=== PATIENT | female | born 1975 | race Caucasian/White ===

== ENCOUNTER → 2023-09-06 17:32 | Outpatient (REF) | payer OTHER, SELFPAY | LOC: WDC 17:32 | PROVIDERS: ATTENDING PHYSICIAN Nurse Practitioner Adult Health; FAMILY PHYSICIAN Family Medicine | DX: Z12.31 Encounter for screening mammogram for malignant neoplasm of breast (principal) | CPT/HCPCS: 77063; 77067 ==

== ENCOUNTER → 2024-09-10 17:34 | Outpatient (REF) | payer OTHER, SELFPAY | LOC: WDC 17:34 | PROVIDERS: ATTENDING PHYSICIAN Nurse Practitioner Adult Health; FAMILY PHYSICIAN Family Medicine | DX: Z12.31 Encounter for screening mammogram for malignant neoplasm of breast (principal) | CPT/HCPCS: 77063; 77067 ==